=== PATIENT | female | born 1950 | race Caucasian/White ===

== ENCOUNTER 2024-02-16 08:51 | Day surgery (SDC) | payer OTHER ==
[2024-02-16] MEDS ORDERED: NA CHLORIDE 0.9% 1,000 ML ONE (09:34)
--- NOTE | 2024-02-16 09:54 | RAD REPORT ---
EXAMINATION: TWO VIEW CHEST XR CLINICAL INDICATION: Female, 73 years old. [facility] PRE-OP Hypertension TECHNIQUE: 2 view radiographs of the chest were performed. COMPARISON: No prior exam. FINDINGS: The lungs are well inflated and clear. No pneumothorax or sizable effusion. The heart is normal in si ze. Mediastinal contours are unremarkable. IMPRESSION: No acute or significant abnormalities.
[2024-02-16 09:55] LABS: Absolute Monocytes 0.7 K/uL (0.1-1.3); Absolute Neutrophil 5.2 K/uL (1.8-8.0); Basophils % 0.5 % (0-1.3); Eosinophils % 10.8 % (0-4.4); Hematocrit 37.8 % (36.0-45.0); Hemoglobin 12.1 g/dL (12.0-15.0); Lymphocytes % 22.2 % (15.3-44.8); MCH 27.6 pg (27.0-35.0); MCV 86.1 fL (80-100); MPV 9.6 fL (7.6-11.3); Monocytes % 7.6 % (3.3-12.3); Neutrophils % 58.9 % (41.7-73.7); Platelets 499 thou/uL (152-406); RBC Red Blood Cell Count 4.39 M/uL (3.86-4.86); Red Cell Distribution Width 13.8 % (12.1-15.2)
[2024-02-16 09:56] LABS: Anion Gap 5.5 mEq/L (5.0-15.0); Potassium 4.5 mEq/L (3.5-5.1)
[2024-02-16] MEDS ORDERED: DEXTROSE 10%-WATER 500 ML IV ONE (10:17)
[2024-02-16] MEDS: DEXTROSE 10%-WATER 125 ML IV ONE (10:32)
[2024-02-16 11:03] LABS: PT Prothrombin Time 12.1 SECONDS (9.4-12.5); Protime INR 1.08
[2024-02-16] MEDS ORDERED: propofoL 200 MG/20 ML VIAL IV ONE (12:35)
[2024-02-16] MEDS ORDERED: MIDAZOLAM HCL 2 MG/2 ML INJ ONE (12:35)
[2024-02-16] MEDS ORDERED: FENTANYL CITR 100 MCG/2 ML ONE (12:35)
[2024-02-16] MEDS ORDERED: LIDOCAINE 2% MPF 5 ML VIAL ONE (12:35)
[2024-02-16] MEDS: CEFAZOLIN SODIUM 1 GM/VIAL IVP ONE (13:06)
[2024-02-16] MEDS ORDERED: CEFAZOLIN SODIUM 1 GM/VIAL ONE (13:12)
[2024-02-16] MEDS ORDERED: EPHEDRINE SULF 50 MG/ML VIAL ONE (13:15)
[2024-02-16] MEDS ORDERED: dexAMETHasone 4 MG/ML VIAL ONE (13:23)
[2024-02-16] MEDS ORDERED: ONDANSETRON 4 MG/2 ML VIAL ONE ×2 (13:23→13:47)
[2024-02-16] MEDS ORDERED: MUPIROCIN 2% OINT 22GM TUBE TOP ONE (13:28)
--- NOTE | 2024-02-16 13:33 | P.BOP ---
Preoperative diagnosis: infected necrotic toe diabetic ulcer Postoperative diagnosis: same Primary procedure: Excisional debridement subQ infected necrotic toe diabetic ulcer 3.5x2.5 cm Secondary procedure: with first toe nail removal Estimated blood loss: <3cc Specimen: necrotic tissue Anesthesia: General Transferred to: Recovery Room Condition: Good
[2024-02-16 16:29] VITALS: BP 158/65; TEMP 97.5; O2SAT 98
--- NOTE | 2024-03-01 22:54 | OP ---
Date of Procedure: 02/16/2024 Surgeon: Joey Tanner MD Preoperative Diagnosis: Infected necrotic diabetic toe ulcer. Postoperative Diagnosis: Infected necrotic diabetic toe ulcer. Procedure: Excisional debridement of subcutaneous infected necrotic diabetic toe ulcer. The area wa s about 3.5 x 2.5 cm and that required also the nail of the first toe to be removed. Estimated Blood Loss: Less than 3 cc. Specimen: Necrotic tissue and nail. Anesthesia: General plus local. Indication: This is a case of a female who comes to us with an infected necrotic diabetic toe ulcer. Some of the debridement included also the first toe removal since that area included that region. The benefits, alternatives, and risks of excisional debridement fully explained, which included, but not limited to, infection, bleeding, damage to adjacent structures, anesthesia complication, nonheali ng wound, MS, and even . She also understands this may not relieve the symptoms. She might nee d more than one surgical intervention. She also understands the importance of a diabetic foot ulcer care, including diabetes control, proper shoe care, proper antibiotics, compliance with treatment. S he understood and signed a consent. Procedure In Detail: The patient was brought to the operating room, placed in supine position. Anes thesia was done without complication. Time-out was called. The left foot and first toe were prepped and draped in usual sterile fashion. Local anesthesia was applied followed by a sharp incision of t he necrotic tissue. Unfortunately, the nail was part of the necrotic tissue present that had to be r emoved with the specimen. This was removed all to the nail bed. The area of debridement was about 3 .5 x 2.5 cm. Hemostasis was obtained with pressure. The area was covered with dry dressing. The pa cruz tolerated procedure well. The patient was sent to recovery in stable condition. DAMI/IBRAHIMA Voice ID: [id number] Report ID: [id number]
--- NOTE | 2024-03-01 22:57 | DS ---
Date of Discharge: 02/16/2024 Diagnosis: Infected necrotic toe diabetic ulcer. Procedure: Excisional debridement of subcutaneous infected necrotic diabetic toe ulcer that is about 3.5 x 2.5 cm. Condition: Stable. Disposition: Home. Activity: As tolerated. No heavy lifting. Discharge Instructions: Follow up in my office in 1 week. Call for appointment at [phone]. The john arroyo was instructed about wound care. DAMI/IBRAHIMA Voice ID: [id number] Report ID: [id number]
== END 2024-02-16 15:23 | disposition home or self-care (01) ==
LOC: OR 08:51
PROVIDERS: ATTEND Surgery
PROC: 0HBRXZZ Excision of Toe Nail, External Approach (ICD-10-PCS; 2024-02-16)
PROC: 0JBR0ZZ Excision of Left Foot Subcutaneous Tissue and Fascia, Open Approach (ICD-10-PCS; principal; 2024-02-16 12:45)
DX: E11.621 Type 2 diabetes mellitus with foot ulcer (principal); L97.522 Non-pressure chronic ulcer of other part of left foot with fat layer exposed; L08.9 Local infection of the skin and subcutaneous tissue, unspecified; I96 Gangrene, not elsewhere classified; E78.00 Pure hypercholesterolemia, unspecified; E11.9 Type 2 diabetes mellitus without complications; Z85.3 Personal history of malignant neoplasm of breast; Z79.4 Long term (current) use of insulin
CPT/HCPCS: 11042; 85025; 80048; 36415; 85610; 82947 ×2; 88304; 85730; 71046; 11730; J2704; J1100; J2001; J2250; J3010; J2405 ×2; J7030; J0690 ×2

== ENCOUNTER 2024-06-07 07:28 | Day surgery (SDC) | payer OTHER ==
[2024-06-07 08:01] LABS: Absolute Basophils 0.2 K/uL (0-0.5); Absolute Eosinophils 0.9 K/uL (0-0.5); Absolute Lymphocytes (CBC) 2.1 K/uL (0.7-4.9); Absolute Monocytes 0.7 K/uL (0.1-1.3); Absolute Neutrophil 4.5 K/uL (1.8-8.0); Hematocrit 35.7 % (36.0-45.0); MCH 27.9 pg (27.0-35.0); MCHC 33.5 g/dL (32.0-36.0); MCV 83.1 fL (80-100); Monocytes % 8.1 % (3.3-12.3); Neutrophils % 53.9 % (41.7-73.7); Platelets 444 thou/uL (152-406); RBC Red Blood Cell Count 4.29 M/uL (3.86-4.86); Red Cell Distribution Width 13.6 % (12.1-15.2)
[2024-06-07 08:14] LABS: Anion Gap 8.7 mEq/L (5.0-15.0); Potassium 4.7 mEq/L (3.5-5.1)
[2024-06-07] MEDS: NA CHLORIDE 0.9% 1,000 ML ONE (08:35)
[2024-06-07 08:41] LABS: PT Prothrombin Time 12.1 SECONDS (9.4-12.5); PTT, Activated Partial Thromb 34.6 SECONDS (24.3-36.9); Protime INR 1.15
[2024-06-07] MEDS ORDERED: LIDOCAINE 2% MPF 5 ML VIAL ONE (10:11)
[2024-06-07] MEDS ORDERED: propofoL 200 MG/20 ML VIAL IV ONE (10:11)
[2024-06-07] MEDS ORDERED: MIDAZOLAM HCL 2 MG/2 ML INJ ONE (10:11)
[2024-06-07] MEDS ORDERED: ONDANSETRON 4 MG/2 ML VIAL ONE (10:11)
[2024-06-07] MEDS ORDERED: FENTANYL CITR 100 MCG/2 ML ONE (10:11)
[2024-06-07] MEDS: CEFEPIME 1 GM/VIAL ONE (10:25)
[2024-06-07] MEDS: BUPIVACAINE 0.5% PF 10 ML VIAL ONE (10:45)
--- NOTE | 2024-06-07 10:59 | P.BOP ---
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
[2024-06-07] MEDS: ONDANSETRON 4 MG/2 ML VIAL ONE (11:14)
[2024-06-07 12:25] VITALS: BP 162/62; TEMP 98.2; O2SAT 100
== END 2024-06-07 12:21 | disposition home or self-care (01) ==
LOC: OR 07:28
PROVIDERS: ATTEND Surgery
PROC: 0JBR0ZZ Excision of Left Foot Subcutaneous Tissue and Fascia, Open Approach (ICD-10-PCS; principal; 2024-06-07 10:13)
DX: M86.072 Acute hematogenous osteomyelitis, left ankle and foot (principal); E11.621 Type 2 diabetes mellitus with foot ulcer; I10 Essential (primary) hypertension; M19.90 Unspecified osteoarthritis, unspecified site; L97.529 Non-pressure chronic ulcer of other part of left foot with unspecified severity
CPT/HCPCS: 87070 ×2; 85025; 80048; 36415; 87205 ×2; 85610; 82947; 85730; 87075; 87176; 11042; J2704; J2003; J2250; J3010; J2405 ×2; J7030; J0692